=== PATIENT | male | born 1945 | race Caucasian/White ===

== ENCOUNTER 2019-03-08 16:24 | Outpatient (REF) | payer MEDICARE, SELFPAY ==
[2019-03-08 20:44] LABS: Abs Immature Grans 0.02 k/cumm (0.0-0.09); Absolute Basophil Count 0.03 k/cumm (0.0-0.2); Absolute Eosinophil Count 0.44 k/cumm (0.0-0.7); Absolute Lymphocyte Count 2.13 k/cumm (1.2-3.4); Absolute Monocyte Count 0.89 k/cumm (0.11-0.7); Absolute Neutrophil Count 5.09 k/cumm (1.2-6.7); Basophils % 0.3; Eosinophils % 5.1; HCT 45.6 % (40.0-50.0); HGB 14.4 g/dL (13.5-17.5); Immature Grans % 0.2; Lymphocytes % 24.8; Mean Corp. HGB Concentration 31.6 g/dL (32.0-36.0); Mean Corpuscular Hemoglobin 30.8 pg (27.0-33.0); Mean Corpuscular Volume 97.6 fL (80-95); Mean Platelet Volume 10.2 fL (8.0-11.0); Monocytes % 10.3; Neutrophils % 59.3; Platelet Count 206 x1000/uL (130-400); RBC 4.67 m/cumm (4.50-6.00); RBC Distribution Width 15.2 % (11.8-14.1)
[2019-03-08 21:03] LABS: Anion Gap 5.8 mmol/L (3-11); BUN 17 mg/dL (7-18); CO2 34.2 mmol/L (21.0-32.0); CREATININE 0.84 mg/dL (0.70-1.30); Calcium 9.6 mg/dL (8.5-10.1); Chloride 102 mmol/L (98-107); Glucose 219 mg/dL (70-100); NT-proBNP 151 pg/mL; Sodium 142 mmol/L (136-145)
== END 2019-03-08 16:44 ==
LOC: NCHCN 16:24
PROVIDERS: PCP Internal Medicine; Visit Provider Internal Medicine
DX: R06.02 Shortness of breath (principal); R06.09 Other forms of dyspnea
CPT/HCPCS: 80048; 83880; 85025

== ENCOUNTER 2020-08-11 16:46 | Outpatient (REF) | payer OTHER, SELFPAY ==
[2020-08-11 22:03] LABS: Abs Immature Grans 0.02 10^3/uL (0.0-0.06); Absolute Basophil Count 0.05 10^3/uL (0.0-0.2); Absolute Eosinophil Count 0.17 10^3/uL (0.0-0.7); Absolute Lymphocyte Count 1.92 10^3/uL (1.2-3.4); Absolute Monocyte Count 0.52 10^3/uL (0.1-0.8); Absolute Neutrophil Count 4.04 10^3/uL (1.2-6.7); Basophils % 0.7; Eosinophils % 2.5; HCT 43.9 % (40.0-50.0); HGB 14.7 g/dL (13.5-17.5); Immature Grans % 0.3; Lymphocytes % 28.6; MCH 31.3 pg (27.0-33.0); MCHC 33.5 % (32.0-36.0); MCV 93.6 fL (80-95); MPV 9.8 fL (8.0-11.0); Monocytes % 7.7; Neutrophils % 60.2; Nucleated RBC 0 %; Platelet Count 231 10^3/uL (130-400); RBC 4.69 10^6/uL (4.36-5.78); RDW 13.4 % (11.8-14.1); RDW-SD 45.6 fL; WBC 6.72 10^3/uL (4.4-10.8)
[2020-08-11 22:14] LABS: ALT 21 U/L (16-63); AST 18 U/L (15-37); Alkaline Phosphatase 124 U/L (46-116); Anion Gap 9.1 mmol/L (3-11); BUN 19 mg/dL (7-18); Bilirubin, Total 0.5 mg/dL (0.2-1.0); CO2 29.9 mmol/L (21.0-32.0); CREATININE 0.93 mg/dL (0.70-1.30); Calcium 9.6 mg/dL (8.5-10.1); Chloride 103 mmol/L (98-107); Glucose 96 mg/dL (74-106); Potassium 3.7 mmol/L (3.5-5.1); Sodium 142 mmol/L (136-145); Total Protein 7.3 g/dL (6.4-8.2)
[2020-08-13 14:41] LABS: PSA, Screening 0.3 ng/mL (0-6.5)
== END 2020-08-11 17:06 ==
LOC: NCHCN 16:46
PROVIDERS: PCP Internal Medicine; Visit Provider Internal Medicine
DX: N39.9 Disorder of urinary system, unspecified (principal); R63.4 Abnormal weight loss
CPT/HCPCS: 80053; 84153; 85025